=== PATIENT | female | born 1990 | race Caucasian/White ===

== ENCOUNTER 2018-05-28 12:36 | Outpatient (CLI) | payer MEDICAID, SELFPAY ==
[2018-05-28 13:15] VITALS: BMI 41.1
[2018-05-28 13:17] LABS: Hematocrit 37.9 % (37-47); Hemoglobin 12.7 g/dl (12.0-15.0); Mean Corp Hgb Conc 33.5 g/gl (32-36); Mean Corpuscular Hgb 32.3 pg (27.0-32.0); Mean Corpuscular Volume 96.4 fL (81-99); Platelet Count 236 K/mm3 (150-450); RBC Distribution Width CV 14.8 % (11.6-14.6); RBC Distribution Width SD 51.4 fl (35.1-43.9); Red Blood Count 3.93 M/mm3 (4.2-5.4); White Blood Count 8.2 K/mm3 (4.4-11.0)
[2018-05-28 13:18] LABS: Scan Indicated on CBC? Y/N NO
[2018-05-28 13:22] LABS: Partial Thromboplast Time 25.7 Seconds (24.1-36.2); Prothrombin Time (Protime)PT. 13.5 SECONDS (11.7-14.9)
[2018-05-28 13:31] LABS: AST(SGOT) 12 U/L (15-37); Alanine Aminotransfer ALT/SGPT 16 U/L (13-56); Creatinine, Serum 0.49 mg/dL (0.55-1.02); EST Glomerular Filtration Rate 160 mL/min (>60); Est Glom Filt Rate - Afr Amer 194 mL/min (>60); Estimated Creatinine Clearance 178.63 ml/min
--- NOTE | 2018-05-28 13:33 | NURSING ---
Pt to WP from office. Was just seen and evaluated by provider for current complaints.
[2018-05-28 13:35] LABS: Protein, Urine (Random) 19.7 mg/dL (<11.9); Protein:Creat Ratio 168 mg/g CRE (0-200)
[2018-05-28] MEDS: Acetaminophen 500 MG Tablet 1000 MG PO (15:34)
--- NOTE | 2018-05-29 18:09 | OB.TRI.PN ---
Progress Notes Date of Service: 05/28/18 Progress Note: S: at 27w2d Patient seen in office with elevated BP. Sent to L&D for triage, labs, and serial BP. Headache mild, did not take anything for relief. O:Labs normal, awaiting 24h urine FHT 155, moderate variability, accels, variable decel, Reactive 15x15 A:Gestational HTN P: 1) Consulted regarding patient elevated BP, Pre-e precautions given. 2) Follow up in 2 days with . 3) D/C home. Laboratory Studies: Laboratory Tests 05/28/18 05/28/18 05/28/18 Range/Units 13:00 13:00 13:00 WBC 8.2 (4.4-11.0) K/mm3 RBC 3.93 L (4.2-5.4) M/mm3 Hgb 12.7 (12.0-15.0) g/dl Hct 37.9 (37-47) % MCV 96.4 (81-99) fL MCH 32.3 H (27.0-32.0) pg MCHC 33.5 (32-36) g/gl RDW 14.8 H (11.6-14.6) % RDW Differential 51.4 H (35.1-43.9) fl Plt Count 236 (150-450) K/mm3 MPV 9.0 (6.2-12.0) fl PT 13.5 (11.7-14.9) SECONDS INR 1.0 APTT 25.7 (24.1-36.2) Seconds Creatinine 0.49 L (0.55-1.02) mg/dL Estim Creat Clear Calc 178.63 ml/min Est GFR (MDRD) Af Amer 194 (>60) mL/min Est GFR (MDRD) Non-Af 160 (>60) mL/min Uric Acid 4.0 (2.6-6.0) mg/dL AST 12 L (15-37) U/L ALT 16 (13-56) U/L U Random Total Protein (<11.9) mg/dL Urine Creatinine (NO RANGE EST.) mg/dL Protein/Creatinin Ratio (0-200) mg/g CRE 05/28/18 Range/Units 12:40 WBC (4.4-11.0) K/mm3 RBC (4.2-5.4) M/mm3 Hgb (12.0-15.0) g/dl Hct (37-47) % MCV (81-99) fL MCH (27.0-32.0) pg MCHC (32-36) g/gl RDW (11.6-14.6) % RDW Differential (35.1-43.9) fl Plt Count (150-450) K/mm3 MPV (6.2-12.0) fl PT (11.7-14.9) SECONDS INR APTT (24.1-36.2) Seconds Creatinine (0.55-1.02) mg/dL Estim Creat Clear Calc ml/min Est GFR (MDRD) Af Amer (>60) mL/min Est GFR (MDRD) Non-Af (>60) mL/min Uric Acid (2.6-6.0) mg/dL AST (15-37) U/L ALT (13-56) U/L U Random Total Protein 19.7 H (<11.9) mg/dL Urine Creatinine 117.00 (NO RANGE EST.) mg/dL Protein/Creatinin Ratio 168 (0-200) mg/g CRE
== END 2018-05-28 16:12 | disposition home or self-care (01) ==
LOC: WPOUT 12:43 → WP 12:44
PROVIDERS: Referring Provider Advanced Practice Midwife; Visit Provider Advanced Practice Midwife
DX: O13.2 Gestational [pregnancy-induced] hypertension without significant proteinuria, second trimester (principal); Z3A.27 27 weeks gestation of pregnancy
CPT/HCPCS: 36415; 59050; 82565; 82570; 84156; 84450; 84460; 84550; 85027; 85610; 85730; 99218; G0378

== ENCOUNTER → 2018-05-29 16:00 | Outpatient (CLI) | payer MEDICAID, SELFPAY ==
[2018-05-28 13:15] VITALS: BMI 41.1
[2018-05-29 18:47] LABS: 24 Hour Urine Protein 299.4 mg/24HR (<150 MG/24HR); 24HR. UA Prot. Total Volume 1475 mL; Urine Protein (24 Hour) 20.3 mg/dL (<11.9)
== END ==
PROVIDERS: Referring Provider Advanced Practice Midwife; Visit Provider Advanced Practice Midwife
DX: O13.9 Gestational [pregnancy-induced] hypertension without significant proteinuria, unspecified trimester (principal); Z3A.00 Weeks of gestation of pregnancy not specified
CPT/HCPCS: 81050; 84156

== ENCOUNTER 2018-06-24 11:30 | Outpatient (RCR) | payer MEDICAID, SELFPAY | END 2018-06-26 23:59 | LOC: DC 11:30 | PROVIDERS: Visit Provider Advanced Practice Midwife | DX: O24.419 Gestational diabetes mellitus in pregnancy, unspecified control (principal); Z71.3 Dietary counseling and surveillance | CPT/HCPCS: 97802; G0108 ==

== ENCOUNTER 2018-07-02 11:48 | Outpatient (RCR) | payer MEDICAID, SELFPAY | END 2018-07-24 23:59 | LOC: DC 11:48 | PROVIDERS: Visit Provider Advanced Practice Midwife | DX: O24.419 Gestational diabetes mellitus in pregnancy, unspecified control (principal) ==

== ENCOUNTER 2018-07-15 14:50 | Outpatient (CLI) | payer MEDICAID, SELFPAY ==
[2018-07-15 15:42] VITALS: BMI 41.6
[2018-07-15] MEDS: 0.9% Normal Saline 1,000 ML 500 ML IV (16:28)
[2018-07-15 16:45] LABS: Hematocrit 37.1 % (37-47); Hemoglobin 12.5 g/dl (12.0-15.0); Mean Corp Hgb Conc 33.7 g/gl (32-36); Mean Corpuscular Hgb 33.5 pg (27.0-32.0); Mean Corpuscular Volume 99.5 fL (81-99); Mean Platelet Vol. 9.2 fl (6.2-12.0); Platelet Count 225 K/mm3 (150-450); RBC Distribution Width CV 15.7 % (11.6-14.6); Red Blood Count 3.73 M/mm3 (4.2-5.4); White Blood Count 8.5 K/mm3 (4.4-11.0)
[2018-07-15 16:47] LABS: Partial Thromboplast Time 24.9 Seconds (24.1-36.2); Prothrombin Time (Protime)PT. 13.3 SECONDS (11.7-14.9)
[2018-07-15 16:48] LABS: Scan Indicated on CBC? Y/N NO
[2018-07-15 16:55] LABS: Protein, Urine (Random) 24.5 mg/dL (<11.9); Protein:Creat Ratio 144 mg/g CRE (0-200)
[2018-07-15 16:58] LABS: AST(SGOT) 13 U/L (15-37); Alanine Aminotransfer ALT/SGPT 13 U/L (13-56); Creatinine, Serum 0.47 mg/dL (0.55-1.02); EST Glomerular Filtration Rate 165 mL/min (>60); Est Glom Filt Rate - Afr Amer 200 mL/min (>60); Estimated Creatinine Clearance 186.24 ml/min
[2018-07-15 17:31] LABS: Bedside Glucose 70 mg/dL (70-110)
--- NOTE | 2018-08-12 12:30 | OB.TRI.NOTE ---
History of Present Illness Was patient seen by the physician?: No Reason For Visit: R/O LABOR Date of Service: 07/15/18 Allergies tramadol Allergy (Verified 08/04/18 19:58) Itching itching and vomiting Laboratory Studies: Laboratory Tests 07/15/18 07/15/18 07/15/18 Range/Units : 15:55 15:55 WBC (4.4-11.0) K/mm3 RBC (4.2-5.4) M/mm3 Hgb (12.0-15.0) g/dl Hct (37-47) % MCV (81-99) fL MCH (27.0-32.0) pg MCHC (32-36) g/gl RDW (11.6-14.6) % RDW Differential (35.1-43.9) fl Plt Count (150-450) K/mm3 MPV (6.2-12.0) fl PT (11.7-14.9) SECONDS INR APTT (24.1-36.2) Seconds Creatinine 0.47 L (0.55-1.02) mg/dL Estim Creat Clear Calc 186.24 ml/min Est GFR (MDRD) Af Amer 200 (>60) mL/min Est GFR (MDRD) Non-Af 165 (>60) mL/min Uric Acid 4.0 (2.6-6.0) mg/dL AST 13 L (15-37) U/L ALT 13 (13-56) U/L U Random Total Protein 24.5 H (<11.9) mg/dL Urine Creatinine 170.00 (NO RANGE EST.) mg/dL Protein/Creatinin Ratio 144 (0-200) mg/g CRE POC Glucose 70 (70-110) mg/dL 07/15/18 07/15/18 Range/Units 15:55 15:55 WBC 8.5 (4.4-11.0) K/mm3 RBC 3.73 L (4.2-5.4) M/mm3 Hgb 12.5 (12.0-15.0) g/dl Hct 37.1 (37-47) % MCV 99.5 H (81-99) fL MCH 33.5 H (27.0-32.0) pg MCHC 33.7 (32-36) g/gl RDW 15.7 H (11.6-14.6) % RDW Differential 54.0 H (35.1-43.9) fl Plt Count 225 (150-450) K/mm3 MPV 9.2 (6.2-12.0) fl PT 13.3 (11.7-14.9) SECONDS INR 1.0 APTT 24.9 (24.1-36.2) Seconds Creatinine (0.55-1.02) mg/dL Estim Creat Clear Calc ml/min Est GFR (MDRD) Af Amer (>60) mL/min Est GFR (MDRD) Non-Af (>60) mL/min Uric Acid (2.6-6.0) mg/dL AST (15-37) U/L ALT (13-56) U/L U Random Total Protein (<11.9) mg/dL Urine Creatinine (NO RANGE EST.) mg/dL Protein/Creatinin Ratio (0-200) mg/g CRE POC Glucose (70-110) mg/dL Impression/Plan 27yo female presented for threatened PTL NST performed
== END 2018-07-15 18:07 | disposition home or self-care (01) ==
LOC: OBT 14:51 → WPOUT 15:33 → OBT 15:37
PROVIDERS: Referring Provider Obstetrics & Gynecology; Visit Provider Obstetrics & Gynecology
DX: O60.00 Preterm labor without delivery, unspecified trimester (principal); Z3A.00 Weeks of gestation of pregnancy not specified
CPT/HCPCS: 96360; 96361; 36415; 59025; 59050; 82565; 82570; 82962; 84156; 84450; 84460; 84550; 85027; 85610; 85730; 99218; J7030; G0378

== ENCOUNTER 2018-08-04 19:00 | Inpatient (IN) | payer MEDICAID, SELFPAY ==
[2018-08-04 13:04] VITALS: BMI 41.6
[2018-08-04] MEDS: Lactated Ringers 1,000 ML 50 ML IV (19:45)
[2018-08-04 20:17] LABS: Hematocrit 38.1 % (37-47); Hemoglobin 12.6 g/dl (12.0-15.0); Mean Corp Hgb Conc 33.1 g/gl (32-36); Mean Corpuscular Hgb 32.5 pg (27.0-32.0); Mean Corpuscular Volume 98.2 fL (81-99); Mean Platelet Vol. 9.4 fl (6.2-12.0); Platelet Count 209 K/mm3 (150-450); RBC Distribution Width CV 15.3 % (11.6-14.6); RBC Distribution Width SD 54.4 fl (35.1-43.9); Red Blood Count 3.88 M/mm3 (4.2-5.4); White Blood Count 9.4 K/mm3 (4.4-11.0)
[2018-08-04 20:19] LABS: Scan Indicated on CBC? Y/N NO
[2018-08-04 20:22] VITALS: BMI 42.3
[2018-08-04] MEDS: 0.9% Normal Saline 100 ML IV.SOLN. INTRA-UTER (20:41)
[2018-08-04 21:30] LABS: Bedside Glucose 123 mg/dL (70-110)
[2018-08-04 21:30] LABS: Bedside Glucose 110 mg/dL (70-110)
[2018-08-04] MEDS: miSOPROStol 25 MCG TABLET PO (21:31)
--- NOTE | 2018-08-04 21:41 | HP.PCM_ITS ---
- Problem List (1) Obesity affecting Status: Acute (2) History of pre-eclampsia Status: Acute (3) History of depression Status: Acute (4) GBS bacteriuria Status: Acute (5) Gestational diabetes mellitus, class A1 Status: Acute (6) Gestational hypertension Status: Acute History Date of Admission: 08/04/18 Final LINDSEY: 08/25/18 Gestational age: 37 Weeks and 0 Days History of this : This is a 27 year-old, G [3], P [1011], at 37 weeks gestational age by first trimester ultrasound Presents to L&D for IOL due to gestational hypertension. Allergies tramadol Allergy (Verified 08/04/18 19:58) Itching itching and vomiting Home Medications: Home Medications Aspirin [Aspir 81] 81 mg PO DAILY 05/28/18 Vits [Prenatabs FA] 1 tablet PO DAILY 05/28/18 Sertraline HCl 75 mg PO DAILY 05/28/18 Smoking Status: Never smoker Alcohol: None Number of Fetus(es): 1 Heart Tracin, moderate variability, accels, no decels, Category 1 TOCO Analysis: None History Past Pregnancies: Past Pregnancies Delivery Date Name GA/Weeks Outcome Route Weight Infant Gender Labor Length Anesthesia Delivery Location Provider FOB Labs: RPR nonreactive Rubella Immune HIV negative HBsAG negative A positive GBS bacteruria Expected Infant Delivery Method: Spontaneous Vaginal Review of Systems Constitutional: Denies: Chills, Fever, Weight Change HEENT: Denies: Head Aches, Sinus Congestion, Sinus Drainage Cardiovascular: Denies: Chest Pain, Palpitations Respiratory: Denies: Cough, Shortness of breath at rest, Sputum production Gastrointestinal: Denies: Abdominal Pain, Nausea, Vomiting Genitourinary: Denies: Dysuria Musculoskeletal: Denies: Joint Pain, Joint Tenderness Skin: Denies: Rash, Wounds Neurological: Denies: Numbness, Tingling, Focal weakness Psychiatric: Denies: Anxiety, Depression, Homicidal Ideations, Suicidal Ideations Physical Exam General: Alert, Oriented x3, No apparent distress HEENT: Atraumatic, Normocephalic. Negative for: Thyromegaly, Lymphadenopathy Cardiovascular: Regular rate, Regular Rhythm, No murmurs Lungs: Clear to auscultation, Normal air movement, No rhonchi, No wheeze Abdomen: Bowel Sounds Present, Soft, Gravid Extremities:: No edema Neurological: Deep Tendon Reflexes 2+/4 and Symmetrical. 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 A: Medically indicated induction of labor for Gestational Hypertension Category 1 FHT P: 1) Admit to L&D. Routine labs. GBS prophylaxis 2) Aarna bulb with PO cytotec for cervical ripening. Anticipate Pitocin after cervical ripening. 3) Epidural for pain management. 4) notified of patient status and admission.
[2018-08-04 22:16] LABS: Bedside Glucose 92 mg/dL (70-110)
[2018-08-05] MEDS: Oxytocin 30 units/NS 500 ml 30 UNITS/500 ML IV.SOLN IV (02:06)
[2018-08-05 02:36] LABS: Bedside Glucose 68 mg/dL (70-110)
[2018-08-05] MEDS: Lactated Ringers 1,000 ML 50 ML IV ×2 (04:30→07:06)
--- NOTE | 2018-08-05 05:04 | NURSING ---
Esperanza arrived to to obtain pt history and discuss epidural placement. Epidural to be placed in another room then will return to place epidural.
[2018-08-05] MEDS: fentaNYL-bupivacaine (epidural) 100 ML BAG EPIDURAL ×2 (05:30→09:44)
[2018-08-05] MEDS: Acetaminophen 325 MG Tablet PO (05:39)
[2018-08-05 06:31] LABS: Bedside Glucose 81 mg/dL (70-110)
[2018-08-05] MEDS: Ondansetron 4 MG/2 ML Vial IV (06:43)
--- NOTE | 2018-08-05 07:52 | PCM.PN.BLA ---
Progress Note pt seen at bedside, VE: 4-5/70/-2- AROM performed clear fluid. IUPC and IFM placed. Continue pitocin.
[2018-08-05 09:16] LABS: Bedside Glucose 79 mg/dL (70-110)
[2018-08-05 10:40] LABS: Bedside Glucose 84 mg/dL (70-110)
[2018-08-05] MEDS: Oxytocin 30 units/NS 500 ml 30 UNITS/500 ML IV.SOLN 334 UNITS IV (11:07)
--- NOTE | 2018-08-05 11:19 | PCM.OB.VAG ---
Vaginal Delivery Maternal Presentation: Medically Indicated Induction Method of Induction: Pitocin, Amniotomy, Cytotec Medical Reason for Induction: Gestational Hypertension Amniotic Membrane Rupture Type: Artificial Amniotic Fluid Description: Clear Final LINDSEY: 08/25/18 Final LINDSEY Source: US <20 weeks Gestational age: 37 Weeks and 1 Days Date of Procedure: 08/05/18 Pre-Operative Diagnosis: GHTN, term gestation Post-Operative Diagnosis: same, live female infant Surgery/ Procedure Performed: Spontaneous Vaginal Delivery Type of Anesthesia: Epidural Description of Procedure: of live female infant born without complication. Shoulders delivered with good maternal effort and gentle downward traction followed by rest of body. delayed cord clamping performed. Presentation: Vertex Placental Delivery Description: Spontaneous Placenta Disposition: [facility] Cord Vessel Description: 3 Vessels Nuchal Cord Compression: Without compression Cord Entanglement: None Drain: Arana to straight drain Estimated Blood Loss: 250 A gender: Female (1 minute): 9 (5 minute): 9 Laceration: Perineal Extension/lac - repaired with 2-0 vicryl and 3-0 rapide, 2nd degree Medications given after delivery: IV Pitocin Complications: None
[2018-08-05] MEDS: Oxytocin 30 units/NS 500 ml 30 UNITS/500 ML IV.SOLN 167 UNITS IV (11:37)
[2018-08-05 13:01] LABS: Bedside Glucose 94 mg/dL (70-110)
[2018-08-05] MEDS: Acetaminophen 500 MG Tablet 1000 MG PO (13:30)
[2018-08-05 15:28] VITALS: BP 135/77; PULSE 92; RESP 16; TEMP 36.7; O2SAT 95
[2018-08-05] MEDS: BENZOCAINE/MENTHOL 1 LOZENGE MUCOUS MEM (18:57)
[2018-08-05 19:45] VITALS: BP 131/61; PULSE 78; RESP 18; TEMP 36.1; O2SAT 95
[2018-08-05] MEDS: Sertraline 50 MG Tablet 75 MG PO (21:07)
[2018-08-05] MEDS: Ibuprofen 600 MG Tablet PO (21:07)
[2018-08-06 00:40] VITALS: BP 153/97; PULSE 75; RESP 18; TEMP 36.7
[2018-08-06 04:20] VITALS: BP 140/82; PULSE 77; RESP 18; TEMP 36
[2018-08-06 06:16] LABS: Bedside Glucose 73 mg/dL (70-110)
--- NOTE | 2018-08-06 07:56 | PN.OBGYN_ITS ---
Patient Problems: Active and Suspected Problems Obesity affecting (Acute) History of pre-eclampsia (Acute) History of depression (Acute) GBS bacteriuria (Acute) Gestational diabetes mellitus, class A1 (Acute) Gestational hypertension (Acute) Subjective: pt seen at bedside, doing well. pt reports good pain control. lochia mild. pt denies BOJORQUEZ, visual changes or RUQ pain. Voiding w/o difficulty. baby was transferred to [facility]- pt requesting dc home - Physical Exam General: Alert, Oriented x3 Abdomen: Soft, Non Tender, - - fundus firm Extremities: No Calf Tenderness Vital Signs Temp Pulse Resp BP Pulse Ox 96.8 F L 77 18 140/82 H 95 08/06/18 04:20 08/06/18 04:20 08/06/18 04:20 08/06/18 04:20 08/05/18 19:45 Oxygen Delivery Method Room Air Weight: 130 kg Body Mass Index (BMI) 42.3 Intake and Output for Last 24 Hours 08/04/18 08/05/18 08/06/18 23:59 23:59 23:59 Intake Total 3867 / 3867 Output Total 1200 / 1200 Balance 2667 / 2667 POC Glucose 08/06/18 08/05/18 08/05/18 06:11 12:48 10:26 POC Glucose 73 94 84 08/05/18 09:08 POC Glucose 79 Medical Necessity - Tobacco Use Smoking Status: Never smoker Assessment/Plan All Active Problems Obesity affecting (Acute) History of pre-eclampsia (Acute) History of depression (Acute) GBS bacteriuria (Acute) Gestational diabetes mellitus, class A1 (Acute) Gestational hypertension (Acute) PPD#1, doing well routine care pain mgmt dc home VS stable- reviewed to follow up in office one week for BP check- sooner if any symptoms
--- NOTE | 2018-08-06 07:59 | DCINST_ITS ---
Discharge Diet: No Restrictions Discharge Activity: Return to Normal Activity, May not drive while taking narcotic pain medications., May Shower May resume sexual activity in: 4-6 weeks Additional Activity Instructions:: Nothing in the vagina for 4-6 weeks. You may return to work/school in 6 weeks. Call your doctor if your incision/area has: Continuous Slow Oozing, Sudden Increased Bleeding, Increased Pain/ Swelling, Increased Redness, Foul Smelling Discharge Additional Instructions: If you experience any of the following, contact your healthcare provider. * Bleeding that soaks a pad every hour for 2 hours * Fever 100.4 or higher * Unrelieved incision or abdominal pain * Swelling, redness, discharge or bleeding from your incision or episiotomy site * Your incision begins to separate * Problems urinating (including inability to urinate or burning while urinating). * Visual changes * Severe headache * Flu-like symptoms * Pain or redness in one of both of your breasts * Pain, warmth, tenderness or swelling in your legs, especially the calf area * Frequent nausea and vomiting * Symptoms of depression or anxiety If you experience any of the following, call 911 or go to the nearest Emergency Room. * Chest pain * Problems breathing * Seizure activity * Partial or complete paralysis of a body part, slurred speech, weakness or drooping of the face, or a sudden inability to walk or hold your balance Allergies/Adverse Reactions: Allergies tramadol Allergy (Verified 08/04/18 19:58) Itching itching and vomiting Medications to take at Discharge Vits [Prenatabs FA ] 1 tablet PO DAILY 05/28/18 Sertraline HCl 75 mg PO DAILY 05/28/18 Ibuprofen [Motrin] 600 mg PO Q6H PRN PRN #30 tablet 08/06/18 The following prescriptions were given: Ibuprofen [Motrin] 600 mg PO Q6H PRN PRN #30 tablet PRN Reason: Mild Pain (1-08/03) When: Call to make an appointment with your doctor in 6 weeks. If you had elevated Blood Pressure or 4th degree laceration you will need to be seen in 2 weeks. Primary Care Physician: Neha Sandhu,Out of [Primary Care Provider] - Test Results: Test results from this visit will be discussed in further detail at your follow- up appointment, if applicable.
[2018-08-06 08:28] VITALS: BP 124/78; PULSE 67; RESP 16; TEMP 36.8; O2SAT 95
[2018-08-06] MEDS: BENZOCAINE/MENTHOL 1 LOZENGE MUCOUS MEM (08:29)
[2018-08-06] MEDS: Senna/Docusate Sodium 1 Tablet PO (08:29)
[2018-08-06 09:55] VITALS: BP 124/78; PULSE 67; RESP 16; TEMP 36.8; O2SAT 95
--- NOTE | 2018-08-10 14:58 | NURSING ---
Follow up call done and no answer voicemail left
== END 2018-08-06 09:55 | disposition home or self-care (01) | DRG 560 ==
PROVIDERS: Obstetrics & Gynecology; Admitting Provider Obstetrics & Gynecology; Referring Provider Obstetrics & Gynecology; Visit Provider Obstetrics & Gynecology
DX: O13.4 Gestational [pregnancy-induced] hypertension without significant proteinuria, complicating childbirth (principal); Z3A.37 37 weeks gestation of pregnancy; Z37.0 Single live birth; O24.420 Gestational diabetes mellitus in childbirth, diet controlled; O99.214 Obesity complicating childbirth; O69.81X0 Labor and delivery complicated by cord around neck, without compression, not applicable or unspecified; O70.1 Second degree perineal laceration during delivery; O98.82 Other maternal infectious and parasitic diseases complicating childbirth; B95.1 Streptococcus, group B, as the cause of diseases classified elsewhere; Z68.41 Body mass index [BMI] 40.0-44.9, adult
CPT/HCPCS: 59025; 59050; 82962; 85027; 86850; 86900; 99218; J7120; G0378; J2405; J3490

== ENCOUNTER 2020-02-23 19:51 | Emergency (ER) | payer MEDICAID, SELFPAY ==
[2020-02-23 19:52] VITALS: BP 162/89; PULSE 100; RESP 26; TEMP 36.2; O2SAT 95; BMI 42.5
[2020-02-23 20:06] VITALS: BP 146/94; PULSE 95; RESP 17; O2SAT 94
[2020-02-23] MEDS: hydrALAZINE 20 MG/ML Vial 5 MG IV (21:24)
[2020-02-23 21:33] LABS: Mucous, Urine 0 SEEN /hpf (<or=2+); Red Blood Cells-Urine 0 SEEN /hpf (0-5); White Blood Cells 0 SEEN /hpf (0-5)
[2020-02-23 21:41] LABS: Absolute Lymphocyte Count 2.41 X10^3/uL (0.83-4.51); Absolute Neutrophil Count 5.7 X10^3/uL (2.0-7.7); Basophil# 0.03 X10^3/uL; Basophil% 0.3 % (0-1); Eosinophil# 0.15 X10^3/uL; Eosinophils% 1.7 % (0-5); Hematocrit 36.4 % (37-47); Hemoglobin 12.2 g/dL (12.0-15.0); Lymphocyte # 2.41 X10^3/ul (4.0); Lymphocyte % 27.2 % (19-41); Mean Corp Hgb Conc 33.5 g/dL (32-36); Mean Corpuscular Hgb 32.5 pg (27.0-32.0); Mean Corpuscular Volume 97.1 fL (81-99); Mean Platelet Vol. 8.9 fl (6.2-12.0); Monocyte# 0.56 X10^3/uL; Monocyte% 6.3 % (0-10); NRBC Flagged by Analyzer 0 % (0-5); Neutrophil # 5.69 X10^3/uL (2.7-7.7); Neutrophil % 64.2 % (47-70); Platelet Count 267 K/mm3 (150-450); RBC Distribution Width CV 13.9 % (11.6-14.6); RBC Distribution Width SD 48.8 fl (35.1-43.9); Red Blood Count 3.75 M/mm3 (4.2-5.4); White Blood Count 8.9 K/mm3 (4.4-11.0)
[2020-02-23 21:54] LABS: Color, Urine Yellow (Yellow); Glucose, Dipstick Normal (Normal); Ketone-Dipstick 5 mg/dl (Negative); Leukocyte Esterase-Dipstick 25 /ul (Negative); Nitrite-Dipstick Negative (Negative); Occult Blood-Urine Negative /ul (Negative); Protein-Dipstick 30 mg/dl (Negative); Specific Gravity, Urine 1.025 (1.002-1.030); Urine Bilirubin Dipstick Negative (Negative); Urine Clarity Clear (Clear); Urine Urobilinogen 1 mg/dl (Normal)
--- NOTE | 2020-02-23 22:05 | ED.DCSUM_ITS ---
- ER Visit Summary Date of Service: 02/23/20 Chief Complaint: Headache and elevated blood pressure History of Present Illness: The patient is a 29 F who presents with a headache and elevated blood pressure that began yesterday. Patient states her headache started yesterday. Patient checked her blood pressure today and noticed it was elevated. Patient is approximately 20 weeks . Patient called her DOCUMENT EXAMINER who referred her to the emergency department. Patient does admit to some scotoma where she was seeing some spots in her vision. Patient describes her headache as throbbing and sharp. Patient states it is worse over the frontal area. Patient states Tylenol has helped with the headache. Patient admits to some nausea. Patient denies any vomiting. Patient denies any dysuria or hematuria. Patient denies any leg swelling. Physical Examination: Vital signs are stable except for an elevated blood pressure of 162/89. Patient is afebrile. Patient is in no acute distress. Oral mucosa is pink and moist. Neck is supple. Trachea is midline. There is no JVD noted. Heart was regular rate and rhythm. Lungs are clear and equal bilaterally. Abdomen is soft. Bowel sounds are normal. There is no tenderness. There is no rebound or guarding noted. There is no hepatomegaly noted. Skin is warm dry. Cranial nerves II through XII are intact. There are no focal motor or sensory deficits noted. Extremities are intact. There is no calf tenderness or edema. Test Results: CBC was within normal limits. Apprehensive metabolic profile was essentially within normal limits. Liver function tests were not elevated. Urinalysis does not show any evidence of urinary tract infection. There is some proteinuria however. Emergency Department Course and Treatment: Patient was given a dose of hydr alazine here. Patient's blood pressure improved to 150/89. Case was discussed with Dr. Sims, patient's DOCUMENT EXAMINER. She recommended giving the patient a dose of oral labetalol here. She is unsure if the patient has a underlying hypertension or if this is related. She believes that the patient had high blood pressure prior to . She will follow-up with the patient in the office tomorrow. Patient is instructed to call the office in the morning to set up an appointment. Patient understood and was agreeable with the plan. All questions were answered. Disposition: Discharge home Impression: 1. Hypertension 2. This note was generated with Dragon dictation software. It may contain incorrect words, spelling, and punctuation that were not noted in review of the chart prior to signing ED Disposition - Plan for ED Patient: Disposition: Home or Assisted Living Diagnosis: Hypertension affecting in second trimester Instructions: ED Hypertension Established Referrals: Brown Sims MD [STAFF PHYSICIAN] - 1 Day Additional Instructions: Call Dr. Sims office tomorrow morning to schedule an appointment tomorrow.
[2020-02-23 22:08] LABS: ALB/GLOB Ratio 0.8 RATIO (0.9-2.4); AST(SGOT) 11 U/L (15-37); Alanine Aminotransfer ALT/SGPT 13 U/L (13-56); Albumin, Serum 2.9 g/dL (3.2-5.0); Alkaline Phosphatase 43 U/L (45-117); Anion Gap 6 (5-15); BUN 11 mg/dL (7-18); BUN/Creat Ratio 18.7 RATIO (10-20); Calcium,Total 8.4 mg/dL (8.5-10.1); Chloride 108 mmol/L (98-107); Creatinine, Serum 0.59 mg/dL (0.55-1.02); EST Glomerular Filtration Rate 127 mL/min (>60); Est Glom Filt Rate - Afr Amer 154 mL/min (>60); Estimated Creatinine Clearance 145.71 ml/min; Globulin 3.8 g/dL (2.2-4.2); Glucose 86 mg/dL (74-106); Potassium 3.5 mmol/L (3.5-5.1); Protein, Total 6.7 g/dL (6.4-8.2); Sodium Level 138 mmol/L (136-145)
[2020-02-23 22:15] VITALS: BP 156/87; PULSE 94; RESP 21; O2SAT 99
[2020-02-23 22:15] LABS: Squamous Epithelial Cells - UA 0-5 SEEN /hpf (5-10)
[2020-02-23 22:16] LABS: Bacteria 1+ /hpf (None Seen); Calcium Oxalate Crystals Ur 1+ /hpf (<or=2+)
[2020-02-23 22:39] VITALS: BP 150/85; PULSE 83; RESP 13; O2SAT 96
[2020-02-23] MEDS: Labetalol 200 MG Tablet PO (23:00)
== END 2020-02-23 23:01 | disposition home or self-care (01) ==
PROVIDERS: Emergency Provider Emergency Medicine; PCP Internal Medicine
DX: O16.2 Unspecified maternal hypertension, second trimester (principal); F32.9 Major depressive disorder, single episode, unspecified; O99.342 Other mental disorders complicating pregnancy, second trimester; Z3A.20 20 weeks gestation of pregnancy; Z79.82 Long term (current) use of aspirin
CPT/HCPCS: 80053; 81001; 85025; 96374; 99285; A4216

== ENCOUNTER 2020-05-23 17:45 | Outpatient (CLI) | payer MEDICAID, SELFPAY ==
[2020-05-23] VITALS (92 sets, daily range): BP systolic 135–187; BP diastolic 71–107; PULSE 62–92; TEMP 36.8–36.9; O2SAT 83–95; BMI 48.9
[2020-05-23] MEDS: 0.9% Saline Lock 10 ML Syringe IV ×4 (19:00→23:35)
[2020-05-23] MEDS: Labetalol (Prefilled) 20 MG/4 ML IV (19:08)
[2020-05-23 19:30] LABS: Hematocrit 38.9 % (37-47); Hemoglobin 12.9 g/dL (12.0-15.0); Mean Corp Hgb Conc 33.2 g/dL (32-36); Mean Corpuscular Hgb 32.7 pg (27.0-32.0); Mean Corpuscular Volume 98.5 fL (81-99); Mean Platelet Vol. 9.6 fl (6.2-12.0); Platelet Count 286 K/mm3 (150-450); RBC Distribution Width CV 15.3 % (11.6-14.6); RBC Distribution Width SD 54.2 fl (35.1-43.9); Red Blood Count 3.95 M/mm3 (4.2-5.4); White Blood Count 8.8 K/mm3 (4.4-11.0)
[2020-05-23] MEDS: Labetalol (Prefilled) 20 MG/4 ML 40 MG IV (19:30)
--- NOTE | 2020-05-23 19:32 | RAD_ITS ---
STUDY: X-RAY CHEST REASON FOR EXAM: Female, 29 years old. Shortness of breath. TECHNIQUE: Single AP portable view of the chest. COMPARISON: None. FINDINGS: No pleural effusion. Faint hazy opacity in the right upper lobe. The lungs are otherwise clear. Normal size heart. Normal mediastinum and jarrod. Normal visualized pulmonary arteries. Normal visualized aortic arch and descending thoracic aorta. Normal visualized thoracic spine. Normal visualized ribs, clavicles, and shoulders. There is no demonstrated abnormality of the visualized soft tissue structures of the upper abdomen. RAD/Chest 1 View (Portable) IMPRESSION: Faint hazy opacity in the right upper lobe concerning for pneumonia. Consider typical and atypical etiologies. Electronically Signed: Brandy Camara MD at 21:24 EST Tel , Service support ,
[2020-05-23 19:39] LABS: Protein, Urine (Random) 34.7 mg/dL (<11.9); Protein:Creat Ratio 151 mg/g CRE (0-200)
[2020-05-23 19:40] LABS: Partial Thromboplast Time 26.6 Seconds (24.1-36.2); Prothrombin Time (Protime)PT. 12.6 SECONDS (11.7-14.9)
[2020-05-23 19:42] LABS: AST(SGOT) 23 U/L (15-37); Alanine Aminotransfer ALT/SGPT 20 U/L (13-56); Creatinine, Serum 0.51 mg/dL (0.55-1.02); EST Glomerular Filtration Rate 149 mL/min (>60); Est Glom Filt Rate - Afr Amer 180 mL/min (>60); Estimated Creatinine Clearance 162.71 ml/min; Uric Acid 4.7 mg/dL (2.6-6.0)
--- NOTE | 2020-05-23 20:15 | PCM.HP.OB ---
- Problem List (1) 33 weeks gestation of Status: Acute (2) Chronic hypertension affecting Status: Chronic (3) Elevated blood pressure reading Status: Acute (4) Headache in Status: Acute (5) Epigastric pain during , antepartum Status: Acute (6) History of pre-eclampsia Status: Acute (7) Abnormal glucose tolerance in Status: Acute (8) Polyhydramnios affecting Status: Acute (9) Obesity affecting Status: Acute History Date of Admission: 08/04/18 Final LINDSEY: 07/08/20 Final LINDSEY Source: US <20 weeks Gestational age: 33 Weeks and 3 Days History of this : This is a 29 year-old, G 4, P 2011, at 33 weeks gestational age who presents with SOB and severe range BP's at home. She has been checking her blood pressures at home and noted severe range BP's today. In general does not feel well. She has SOB and epigastric pain that has been persistent at home. She presents to L&D triage for evaluation. Allergies tramadol Allergy (Verified 05/23/20 19:27) Itching itching and vomiting Home Medications: Home Medications Vits [Prenatabs FA ] 1 tablet PO DAILY 05/28/18 Sertraline HCl 100 mg PO DAILY 05/28/18 Aspirin [Aspirin, Baby] 81 mg PO DAILY@0800 02/23/20 Smoking Status: Never smoker Number of Fetus(es): 1 NST - FHR Rate Baby A Baseline: 140 Variability:: Moderate Accelerations:: 15 x 15 Decelerations:: None NST Reactive:: Yes Uterine Activity:: Occasional ctx's History Past Pregnancies: Past Pregnancies Delivery Date Name GA/ Weeks Outcome Route Wt Infant Sex Labor Length Anesthesia Delivery Location Provider FOB Labs: See [facility] records Expected Infant Delivery Method: Spontaneous Vaginal Review of Systems HEENT: Reports: Head Aches Respiratory: Reports: Shortness of Breath, Shortness of breath upon exertion Gastrointestinal: Reports: Abdominal Pain Physical Exam Vitals: Vital Signs Temp Pulse BP Pulse Ox 98.5 F 82 146/95 H 94 05/23/20 19:35 05/23/20 20:13 05/23/20 20:08 05/23/20 20:13 Assessment/Plan All Active Problems 33 weeks gestation of (Acute) Elevated blood pressure reading (Acute) Headache in (Acute) Epigastric pain during , antepartum (Acute) History of pre-eclampsia (Acute) Abnormal glucose tolerance in (Acute) Polyhydramnios affecting (Acute) Obesity affecting (Acute) Obesity affecting (Acute) History of pre-eclampsia (Acute) History of depression (Acute) GBS bacteriuria (Acute) Gestational diabetes mellitus, class A1 (Acute) Gestational hypertension (Acute) This is a 29 year-old, at 33 wks gestation who presents for SOB and severe range BP's at home. - cHTN: The pt has a h/o of preeclampsia in prior . She has likely cHTN as well. Has been on baby ASA. Her BP's have been trending up in the office, but she has not needed antihypertensive. She has had negative pre e workup in the office as well. She has new SOB and epigastric pain. She developed a BOJORQUEZ since being on L&D. She was treated with 20 mg of IV labetalol and then 40 mg of IV labetalol for persistent severe range BP's. Starting Labetalol 200 mg BID PO. She is being given Tylenol for her BOJORQUEZ and Mylanta for epigastric pain. Pre e labs and p/c ratio are normal. CXR for SOB to r/o pulmonary edema shows a possible pneumonia. Clinically there is no concern for pneumonia. O2 sat 92-95% on RA. Her BOJORQUEZ is mild but is persistent despite Tylenol. BP's are now mild range on an oral antihypertensive. Epigastric pain has resolved with Mylanta - H/o GDM: 1 hr GTT was elevated. Only 1 value on 3 hr GTT was elevated, but another value was borderline. She is being treated as A1GDM at this time given poly, h/o GDM, and her GTT results. BG have been controlled with diet. Fetus LGA, EFW 5 lb 11 oz on 05/13. To get bedside BG - Poly: CAMRON 27 cm on 05/18 - BMZ x 1 given - GBS collected - Mag gtt not started - Rapid covid sent - Discussed patient with Dr. Craft with [facility] who agrees with transfer to [facility] for further care given 33 week gestation, persistent BOJORQUEZ, and persistent severe range BP. Likely cHTN with possible superimposed preeclampsia
[2020-05-23] MEDS: Mag Hydrox/Al Hydrox/Simeth 30 ML UDC PO (20:26)
[2020-05-23] MEDS: Acetaminophen 500 MG Tablet 1000 MG PO (20:26)
[2020-05-23] MEDS: Labetalol 200 MG Tablet PO (20:43)
[2020-05-23 21:55] LABS: Bedside Glucose 101 mg/dL (70-110)
[2020-05-23 22:00] LABS: Group B Strep DNA By PCR Negative (Negative); Internal Control PASS; Probe Check PASS; Specimen Processing Control PASS
[2020-05-23] MEDS: Betamethasone/Betamethasone 30 MG/5 ML Vial 12 MG IM (22:41)
[2020-05-23] MEDS: Labetalol (Compound) 20 MG/4 ML SYRINGE IV ×2 (23:30→23:50)
[2020-05-23] MEDS: Magnesium Sulfate 4gm/100mL 4 GM/100 ML IV.SOLN. IV (23:35)
[2020-05-23] MEDS: Magnesium Sulfate 20 GM/500 ML BAG IV (23:57)
[2020-05-24] VITALS (35 sets, daily range): BP systolic 125–168; BP diastolic 71–97; PULSE 70–145; TEMP 36.5–36.9; O2SAT 85–97
[2020-05-24] MEDS: hydrALAZINE 20 MG/ML Vial 10 MG IV (01:21)
== END 2020-05-24 02:08 | disposition short-term general hospital (02) ==
LOC: WPOUT 17:52 → WP 17:52
PROVIDERS: Obstetrics & Gynecology; PCP Internal Medicine; Visit Provider Advanced Practice Midwife
DX: R06.02 Shortness of breath (principal); E66.9 Obesity, unspecified; O99.213 Obesity complicating pregnancy, third trimester; O99.343 Other mental disorders complicating pregnancy, third trimester; O26.893 Other specified pregnancy related conditions, third trimester; F32.9 Major depressive disorder, single episode, unspecified; Z79.82 Long term (current) use of aspirin; Z3A.33 33 weeks gestation of pregnancy
CPT/HCPCS: 96365; 96366; 96367; 36415; 59025; 59050; 71045; 82565; 82570; 82962; 84156; 84450; 84460; 84550; 85027; 85610; 85730; 87081; 87426; 87653; 94760; 96372; 99218; A4216; G0378; J0702

== ENCOUNTER → 2022-04-06 | Outpatient (CLI) | payer MEDICAID, SELFPAY | END | disposition home or self-care (01) | LOC: SL 20:05 | PROVIDERS: PCP Internal Medicine; Visit Provider Internal Medicine | DX: G47.30 Sleep apnea, unspecified (principal) | CPT/HCPCS: 95811 ==

== ENCOUNTER 2022-04-30 08:14 | Emergency (ER) | payer MEDICAID, SELFPAY ==
[2022-04-30 08:15] VITALS: BP 198/92; PULSE 49; RESP 28; TEMP 36.2; O2SAT 95; BMI 41.3
[2022-04-30 08:17] VITALS: O2SAT 96
--- NOTE | 2022-04-30 08:26 | RAD_ITS ---
STUDY: X-RAY CHEST REASON FOR EXAM: Female, 31 years old. Cough TECHNIQUE: PA and lateral views of the chest. COMPARISON: Comparison is made with prior study dated 05/23/2020. FINDINGS: There is evidence of a right middle lobe infiltration as well as left perihilar infiltrate. Increased markings are also seen in the right upper lobe most likely scarring. This is unchanged. There is no demonstrated pleural abnormality. Normal size heart. Normal mediastinum and jarrod. Normal visualized pulmonary arteries. Normal visualized aortic arch and descending thoracic aorta. Normal visualized thoracic spine. Normal visualized ribs, clavicles, and shoulders. There is no demonstrated abnormality of the visualized soft tissue structures of the upper abdomen. RAD/Chest PA and Lateral IMPRESSION: New right middle lobe and left perihilar infiltrates. Follow-up is recommended. Stable scarring in the right upper lobe. Electronically Signed: Clifton Sullivan MD at 9:27 EST ,
--- NOTE | 2022-04-30 08:29 | EDS_ITS ---
HPI History of Present Illness Chief Complaint: Shortness of Breath Informant: patient Narrative Narrative: Patient presents with cough and possible wheezing. She states she started getting sick about a week ago. She had some cough. She has had some intermittent headache. She has had occasional chills but no measured fevers. No real myalgias. No sputum production. No hemoptysis. She states her chest is occasionally sore if she coughs hard but other than that no chest pain. No leg pain or swelling. No history of DVT or PE in her or family members. She did travel to [place] about 3 weeks ago. This was about a 4-hour drive. She was seen at a different hospital on Saturday. It sounds like she was treated with prednisone, azithromycin and an inhaler. She does report having asthma as a child and using nebulizer treatments but has not used those in a long time. She is not a smoker. She was getting better yesterday. But she woke up this morning around 430 with a lot of coughing. She tried to use her inhaler but it was hard because of the coughing. It was not improving so she came in here. She is doing a little bit better now than this morning. [facility] Medical History (Updated 04/30/22 @ 12:[address] Naif Whitt MD) Anxiety Depression HTN (hypertension) Home Medications albuterol sulfate 90 mcg/actuation aerosol inhaler 2 puff inhalation Q4H 04/30/22 [History Last Taken Unknown] azithromycin 250 mg tablet 250 mg 04/30/22 [History Last Taken Unknown] benzonatate 200 mg capsule 200 mg PO PRN PRN Cough 04/30/22 [History Last Taken Unknown] bupropion HCl 150 mg 24 hr tablet, extended release 150 mg PO DAILY 04/30/22 [History Last Taken Unknown] escitalopram oxalate 5 mg tablet 10 mg PO DAILY 04/30/22 [History Last Taken Unknown] prednisone 20 mg tablet 60 mg PO DAILY 04/30/22 [History Last Taken Unknown] Allergy/AdvReac Type Severity Reaction Status Date / Time tramadol Allergy Itching Verified 04/30/22 08:17 Social History Smoking Status: Never smoker ROS ROS ED Constitutional Constitutional ED: Reports chills Eyes Eyes: Denies change in vision ENT ENT ED: Reports rhinorrhea and sore throat Cardiovascular Cardiovascular: Denies chest pain or palpitations Respiratory/Chest Respiratory/Chest: Reports cough and dyspnea; Denies sputum Gastrointestinal Gastrointestinal: Denies abdominal pain, nausea or vomiting Genitourinary Genitourinary ED: Denies dysuria Musculoskeletal Musculoskeletal: Denies arthralgias or myalgias Integumentary Denies rash Neurologic Neurologic: Reports headache(s) Endocrine Endocrinology: Denies polydipsia or polyuria Hematologic/Lymphatic Hematologic/Lymphatic: Denies lymphadenopathy Allergic/Immunologic Allergic/Immunologic ED: Denies urticaria EXAM Physical Exam Const Vital Signs: 04/30/22 08:15 04/30/22 08:57 04/30/22 08:45 Temperature 97.1 F L Temperature Source Temporal Pulse Rate 49 L 50 L Respiratory Rate 28 H 18 Respiratory Effort Normal Non-Labored Respiratory Depth Normal Respiratory Pattern Normal Normal Blood Pressure 198/92 H Blood Pressure Mean 127 Pulse Ox 95 Oxygen Delivery Method Room Air Positive well nourished and well developed Constitutional Narrative: Patient sitting quietly in bed. She is carrying on normal conversation. Respiratory rates about 20 at this time. General Appearance ED: well developed and NAD HEENT Reports moist mucous membranes HEENT Narrative: No exudates Eyes PERRL General Eye ED: Negative for pale conjunctiva or scleral icterus Neck no lymphadenopathy Neck Narrative: No stridor. No JVD Resp normal respiratory effort Resp Narrative: Respiratory effort actually looks normal despite her vitals. She carries on normal conversation. I do not hear any rhonchi. She does have expiratory wheezing that is mild. It increases with deep breaths. Deep breaths do induce a cough. Auscultation: wheezes; Negative for rales or rhonchi Cardio regular rate, regular rhythm and no murmurs GI non-tender Back/Spine no CVA tenderness Extremity normal to inspection Extremity Narrative: No cords, tenderness, asymmetry, distended veins. Pulses are normal. General Extremety ED: Negative for edema or tenderness General Extremity: Negative for edema Neuro Sensorium / Orientation: alert Psych mental status grossly normal Skin no wounds MDM MDM MDM Narrative Medical decision making narrative: X-ray shows infiltrate. Patient was giving a breathing treatment. She felt that this helped quite a bit. Her lung we walked her. She did drop to 91% but she felt good. I also watched her walk all the way down the [place] she walked very quickly without any symptoms. Patient is PERC negative. I think we can get her home. She took her first dose of azithromycin on Saturday at the hospital. Second dose was yesterday. She is about to take her third dose. I do not think we need to change antibiotics as I do not think this is failure of antibiotic therapy at this point. These should be appropriate for her age group. We did discuss reasons that would bring her back in. Patient is on 60 of prednisone a day which is a good dose. I will also have respiratory therapy get a spacer for her inhaler so that it works better for her. Radiography Diagnostic Testing: Clinical Impression(s) from Imaging Studies Chest X-Ray 04/30/22 08:26 IMPRESSION: New right middle lobe and left perihilar infiltrates. Follow-up is recommended. Stable scarring in the right upper lobe. Electronically Signed: Clifton Sullivan MD at 9:27 EST , X-rays looked at by me and read by radiology do show infiltrative process. Discharge Plan Triage Chief Complaint: Shortness of Breath ED Provider: Naif Whitt Dx/Rx/DC Orders Clinical Impression: Community acquired pneumonia, Bronchospasm Instructions: ED Pneumonia (Adult) Prescriptions: No Action azithromycin 250 mg tablet 250 mg Label Comments: take 2 tablets by mouth on day 1 IN ONE DOSE then 1 tablet on days 2 through 5 benzonatate 200 mg capsule 200 mg PO PRN PRN (Reason: Cough) Label Comments: take 1 capsule by mouth three times a day albuterol sulfate 90 mcg/actuation HFA aerosol inhaler 2 puff INHALATION Q4H Label Comments: INHALE 2 PUFFS BY MOUTH EVERY 4 HOURS bupropion HCl 150 mg tablet extended release 24 hr 150 mg PO DAILY escitalopram oxalate 5 mg tablet 10 mg PO DAILY prednisone 20 mg tablet 60 mg PO DAILY Label Comments: take 3 tablets by mouth once daily Primary Care Provider: Rona Hyde Referrals: Rona Hyde MD [Primary Care Provider] - 3-5 Days if not improving Disposition Disposition: Home, Self Care
[2022-04-30] MEDS: Ipratropium/Albuterol Sulfate 3 ML AMPUL.NEB INHALATION (08:41)
[2022-04-30 08:45] VITALS: PULSE 50; RESP 18
[2022-04-30 10:25] VITALS: O2SAT 98
[2022-04-30 12:20] VITALS: PULSE 103; O2SAT 97
== END 2022-04-30 12:26 | disposition home or self-care (01) ==
PROVIDERS: Emergency Provider Emergency Medicine; PCP Internal Medicine; Visit Provider Emergency Medicine
DX: J18.9 Pneumonia, unspecified organism (principal); J98.01 Acute bronchospasm; I10 Essential (primary) hypertension; F41.9 Anxiety disorder, unspecified; F32.A Depression, unspecified; Z79.899 Other long term (current) drug therapy
CPT/HCPCS: 71046; 87428; 94640; 99282

== ENCOUNTER 2022-05-30 09:00 | Emergency (ER) | payer MEDICAID, SELFPAY ==
[2022-05-30 09:01] VITALS: BP 171/101; PULSE 71; RESP 18; TEMP 36.6; O2SAT 97; BMI 41.3
== END 2022-05-30 12:17 | disposition left against medical advice (07) ==
LOC: ED 12:21
PROVIDERS: PCP Internal Medicine
DX: Z53.21 Procedure and treatment not carried out due to patient leaving prior to being seen by health care provider (principal)

== ENCOUNTER 2024-10-21 12:02 | Emergency (ER) | payer MEDICAID, SELFPAY ==
[2024-10-21] VITALS (13 sets, daily range): BP systolic 121–150; BP diastolic 72–104; PULSE 50–67; RESP 14–19; TEMP 36.7–36.9; O2SAT 91–98; BMI 41.8
--- NOTE | 2024-10-21 12:35 | CT_ITS ---
PROCEDURE: CTA CHEST W/WO CONTRAST 10/21/2024 REASON FOR EXAM: CHEST PAIN, KNOWN PULMONARY ANEURYSM TECHNIQUE: CTA axial imaging of the chest with intravenous contrast. Multiplanar and multisequence images were obtained. PATIENT PREPARATION: Per protocol CONTRAST: Isovue-300 VOLUME: 100 mL One or more dose reduction techniques were used (e.g., Automated exposure control, adjustment of the mA and/or kV according to patient size, use of iterative reconstruction technique). RADIATION DOSE SUMMARY: CTDlvol: 13.4 mGy DLP: 567.22 mGycm . COMPARISON: None FINDINGS: Hardware: None Lymph nodes: Small benign-appearing mediastinal lymph nodes. There is a right hilar lymph node measuring 2.1 cm. Heart: Heart size is normal. No coronary artery calcification. Thoracic Aorta: No thoracic aortic aneurysm or dissection. Pulmonary Vessels: There is enlargement of the central main pulmonary arteries as well as the main pulmonary artery suggestive of pulmonary hypertension. No evidence of pulmonary embolism. Lungs and Airways: Hyperinflation. Increased markings are seen in the upper lobes more pronounced in the left hemithorax with areas of geographic ground-glass appearance most likely representing scarring. This is worse in the left hemithorax and lower lobes. Pleura: No pleural effusion. Upper Abdomen: Unremarkable Bones: Degenerative changes of the thoracic spine. CT/CTA Chest W/WO Contrast IMPRESSION: Findings suggestive of pulmonary hypertension with evidence of enlargement of t he central pulmonary arteries as described. Findings suggestive of scarring in both lungs worse in the left hemithorax. No evidence of pulmonary embolism. Reading Location: [place] [id number]
--- NOTE | 2024-10-21 12:35 | EKG12_ITS ---
Test Reason : CP Blood Pressure : */* mmHG Vent. Rate : 56 BPM Atrial Rate : 56 BPM P-R Int : 172 ms QRS Dur : 90 ms QT Int : 500 ms P-R-T Axes : 14 -69 70 degrees QTcB Int : 482 ms Sinus bradycardia Left axis deviation Low voltage QRS Inferior infarct , age undetermined Anterior infarct , age undetermined QTcB >= 480 msec Abnormal ECG Confirmed by MIKAYLA LAINEZ ([id number]), pictures editor LOAN SCHNEIDER ([id number]) on 10/26/2024 8:04:38 AM Referred By: Confirmed By: MIKAYLA LAINEZ
[2024-10-21 12:50] LABS: Absolute Lymphocyte Count 1.51 X10^3/uL (0.83-4.51); Absolute Neutrophil Count 5.5 X10^3/uL (2.0-7.7); Basophil# 0.05 X10^3/uL; Basophil% 0.6 % (0-1); Eosinophil# 0.25 X10^3/uL; Eosinophils% 3.2 % (0-5); Hematocrit 46.6 % (37-47); Lymphocyte # 1.51 X10^3/ul (0.83-4.51); Lymphocyte % 19.5 % (19-41); Mean Corp Hgb Conc 34.3 g/dL (32-36); Mean Corpuscular Hgb 32.7 pg (27.0-32.0); Mean Corpuscular Volume 95.1 fL (81-99); Mean Platelet Vol. 9.3 fl (6.2-12.0); Monocyte# 0.41 X10^3/uL; Monocyte% 5.3 % (0-10); NRBC Flagged by Analyzer 0 % (0-5); Neutrophil % 71.1 % (47-70); Platelet Count 318 K/mm3 (150-450); RBC Distribution Width CV 12.8 % (11.6-14.6); RBC Distribution Width SD 44.3 fl (35.1-43.9); White Blood Count 7.7 K/mm3 (4.4-11.0)
[2024-10-21] MEDS: 0.9% Normal Saline (1000mL) 1,000 ML 999 ML IV (12:58)
--- NOTE | 2024-10-21 13:14 | ED.VIS.CHEST ---
HPI History of Present Illness Chief Complaint: Chest Pain Narrative Narrative: Chief complaint and HPI: Chest pain. 32-year-old female with past medical history of HTN, GERD, pulmonary artery aneurysm presents for evaluation of chest pain. Onset of chest pain 9 AM. Patient describes it as sharp. Worse when she takes a deep breath in. Pain did not improve so she called EMS. Was given aspirin and nitro prior to arrival. No improvement in pain. She denies any fever, chills, shortness of breath, URI symptoms, nausea, vomiting. Denies any injury or trauma that she knows of. Denies any recent travel surgery. Denies any bilateral lower extremity swelling or pain. Review of systems: See HPI Medications: As listed on the chart Allergies: As listed on the chart PFSH: Per chart Vital signs: As listed on the chart. Reviewed. Physical exam: Gen: A&O x3, NAD Head: Normocephalic, atraumatic Eyes: No sclera icterus, conjunctiva clear ENT: Moist mucous membranes Neck: Trachea midline, No JVD CV: RRR, no murmurs, no peripheral edema, chest pain nonreproducible Resp: Lungs CTA BL, no w/r/c GI: Abd soft, non-distended, non-tender, no r/r/g Musc: Full ROM, no deformity, radial pulses +2 bilateral Skin: Warm, dry Neuro: Alert, oriented, grossly intact, sensation intact Psych: Cooperative, appropriate mood and affect [facility] Medical History (Updated 10/21/24 @ 15:[address] Henri Carbajal, ) Bipolar 1 disorder Anxiety Depression HTN (hypertension) Home Medications ?Medication ?Instructions ?Recorded ?Last Taken ?Type albuterol sulfate 90 mcg/actuation 2 puff inhalation Q4H 04/30/22 Unknown History aerosol inhaler azithromycin 250 mg tablet 250 mg 04/30/22 Unknown History benzonatate 200 mg capsule 200 mg PO PRN PRN Cough 04/30/22 Unknown History bupropion HCl 150 mg 24 hr tablet, 150 mg PO DAILY 04/30/22 Unknown History extended release escitalopram oxalate 5 mg tablet 10 mg PO DAILY 04/30/22 Unknown History prednisone 20 mg tablet 60 mg PO DAILY 04/30/22 Unknown History Allergy/AdvReac Type Severity Reaction Status Date / Time tramadol Allergy Itching Verified 04/30/22 08:17 Social History Smoking Status: Never smoker EXAM Physical Exam Const Vital Signs: 10/21/24 12:03 10/21/24 12:55 10/21/24 13:03 Temperature 98.4 F Temperature Source Oral Pulse Rate 59 L 67 Respiratory Rate 16 15 Respiratory Effort Normal Non-Labored Blood Pressure 144/89 H 141/77 H Blood Pressure Mean 107 98 Pulse Ox 98 95 Oxygen Delivery Method Room Air 10/21/24 13:05 10/21/24 13:15 10/21/24 13:15 Temperature Temperature Source Pulse Rate 57 L Respiratory Rate 16 Respiratory Effort Blood Pressure 145/99 H 145/99 H Blood Pressure Mean 109 109 Pulse Ox 94 Oxygen Delivery Method 10/21/24 13:30 10/21/24 13:30 10/21/24 13:45 Temperature Temperature Source Pulse Rate 53 L Respiratory Rate 18 Respiratory Effort Blood Pressure 135/79 H 135/79 H 121/73 H Blood Pressure Mean 96 96 87 Pulse Ox 94 93 Oxygen Delivery Method 10/21/24 14:00 10/21/24 14:00 10/21/24 14:15 Temperature Temperature Source Pulse Rate 64 Respiratory Rate 17 Respiratory Effort Blood Pressure 132/81 H 127/72 H 132/81 H Blood Pressure Mean 98 87 96 Pulse Ox 96 91 93 Oxygen Delivery Method 10/21/24 14:30 10/21/24 14:45 10/21/24 15:00 Temperature Temperature Source Pulse Rate 52 L 50 L 50 L Respiratory Rate 19 H 16 14 Respiratory Effort Blood Pressure 145/88 H 137/88 H 131/90 H Blood Pressure Mean 99 102 101 Pulse Ox 96 95 97 Oxygen Delivery Method 10/21/24 15:15 10/21/24 15:36 Temperature 98.1 F Temperature Source Pulse Rate 61 61 Respiratory Rate 16 16 Respiratory Effort Blood Pressure 150/104 H 150/104 H Blood Pressure Mean 118 119 Pulse Ox 95 95 Oxygen Delivery Method MDM MDM MDM Narrative Medical decision making narrative: 32-year-old female with past medical history of HTN, GERD, pulmonary artery aneurysm presents for evaluation of chest pain. Onset of chest pain 9 AM. Patient describes it as sharp. Worse when she takes a deep breath in. Given aspirin and nitro prior to arrival without improvement. Differential diagnosis includes but is not limited to myofascial spasm, pleurisy, dissection given her reported aneurysm, PE, ACS, suspect less likely pneumonia. Will hold off on Toradol for pain until further assessment. NS bolus and Tylenol ordered. Cardiac workup ordered including CTA chest. EKG reviewed, see below. CBC without leukocytosis. Patient has a hemoglobin of 16. May be secondary to mild dehydration. Fluids running. Platelet count unremarkable. BMP unremarkable without CARMEL or electrolyte abnormality. Magnesium mildly elevated at 2.3. Patient states that she takes daily magnesium. Troponin unremarkable x 2-low suspicion for ACS. Patient is low risk per heart score as well. BNP unremarkable. CTA chest shows enlargement of the central main pulmonary arteries as well as the main pulmonary arteries suggestive of pulmonary hypertension. No PE. Patient has findings suggestive of scarring in both lungs worse in the left hemithorax. Patient states that she has history of lung fibrosis. At this point in time, no clear etiology for patient's symptoms. On reexamination, patient states her pain has improved. Patient was updated on all of her results. Patient stable to discharge home. Follow-up with PCP. Return precautions explained. She confirmed understand the plan. EKG: Interpreted by me/EM physician: EKG shows sinus bradycardia with a heart rate of 56. No ST elevation. Impression: 1. Atypical chest pain Lab Data Labs: Laboratory Results - last 24 hr 10/21/24 10/21/24 11:49 13:49 WBC 7.7 RBC 4.90 Hgb 16.0 H Hct 46.6 MCV 95.1 MCH 32.7 H MCHC 34.3 RDW Std Deviation 44.3 H RDW Coeff of Jeffry 12.8 Plt Count 318 MPV 9.3 Immature Gran % (Auto) 0.300 Neut % (Auto) 71.1 H Lymph % (Auto) 19.5 Towns % (Auto) 5.3 Eos % (Auto) 3.2 Baso % (Auto) 0.6 Absolute Neuts (auto) 5.5 Absolute Lymphs (auto) 1.51 Nucleated RBC % 0 Sodium 135 Potassium 4.2 Chloride 101 Carbon Dioxide 22.4 Anion Gap 11 BUN 12 Creatinine 0.70 Estim Creat Clear Calc 162.97 Est GFR (MDRD) Non-Af 116 BUN/Creatinine Ratio 17.2 Glucose 101 H Calcium 8.8 Magnesium 2.3 H Troponin T High Sens < 6 Troponin T Hi Sens 2 Hr < 6 NT pro BNP II 51 Radiography Diagnostic Testing: Clinical Impression(s) from Imaging Studies Chest CTA 10/21/24 12:35 IMPRESSION: Findings suggestive of pulmonary hypertension with evidence of enlargement of the central pulmonary arteries as described. Findings suggestive of scarring in both lungs worse in the left hemithorax. No evidence of pulmonary embolism. Reading Location: [place] [id number] Discharge Plan Triage Chief Complaint: Chest Pain ED Provider: Henri Carbajal Dx/Rx/DC Orders Clinical Impression: Chest pain Instructions: ED Chest Pain, Uncertain Cause Prescriptions: No Action azithromycin 250 mg tablet 250 mg Patient Comments: take 2 tablets by mouth on day 1 IN ONE DOSE then 1 tablet on days 2 through 5 benzonatate 200 mg capsule 200 mg PO PRN PRN (Reason: Cough) Patient Comments: take 1 capsule by mouth three times a day albuterol sulfate 90 mcg/actuation HFA aerosol inhaler 2 puff INHALATION Q4H Patient Comments: INHALE 2 PUFFS BY MOUTH EVERY 4 HOURS bupropion HCl 150 mg tablet extended release 24 hr 150 mg PO DAILY escitalopram oxalate 5 mg tablet 10 mg PO DAILY prednisone 20 mg tablet 60 mg PO DAILY Patient Comments: take 3 tablets by mouth once daily Primary Care Provider: Rona Hyde Referrals: Rona Hyde MD [Primary Care Provider] - 3-5 Days Activity Restrictions/Additional Instructions: Follow-up with primary care physician. Return back to the ED if symptoms change or worsen. At this time no clear reason for your pain that you experienced. Print Language: Micronesian Disposition Disposition: Home, Self Care Discharge Date/Time: 10/21/24 15:41
[2024-10-21 13:25] LABS: Anion Gap 11 (5-15); BUN 12 mg/dL (4-19); BUN/Creat Ratio 17.2 RATIO (10-20); Calcium,Total 8.8 mg/dL (7.6-11.0); Carbon Dioxide 22.4 mmol/L (21.0-32.0); Chloride 101 mmol/L (98-108); EST Glomerular Filtration Rate 116 (>60); Estimated Creatinine Clearance 162.97 ml/min (50-250); Glucose 101 mg/dL (70-99); Magnesium 2.3 mg/dL (1.5-2.2); Potassium 4.2 mmol/L (3.3-5.1); Pro- Brain NATRIURETIC PEPTIDE 51 pg/mL (<=450); Sodium Level 135 mmol/L (133-145); Troponin T High Sensitivity < 6 ng/L (<=14)
[2024-10-21] MEDS: Acetaminophen 500 MG Tablet 1000 MG PO (14:21)
[2024-10-21 15:19] LABS: Troponin T High Sens 2 HR < 6 ng/L (<=14)
== END 2024-10-21 15:41 | disposition home or self-care (01) ==
PROVIDERS: Emergency Provider Surgery; PCP Internal Medicine; Visit Provider Surgery
DX: R07.89 Other chest pain (principal); F31.9 Bipolar disorder, unspecified; I10 Essential (primary) hypertension; K21.9 Gastro-esophageal reflux disease without esophagitis; F41.9 Anxiety disorder, unspecified; Z86.79 Personal history of other diseases of the circulatory system; Z79.899 Other long term (current) drug therapy
CPT/HCPCS: 71275; 80048; 83735; 83880; 84484; 85025; 93005; 96360; 99285; Q9967; A4216

== ENCOUNTER → 2024-12-01 | Outpatient (CLI) | payer MEDICAID, SELFPAY ==
--- NOTE | 2024-12-01 12:39 | RAD_ITS ---
EXAM: XR Chest, 2 Views CLINICAL INDICATION: SOB TECHNIQUE: Frontal and lateral views of the chest. COMPARISON: No relevant prior studies available. FINDINGS: LUNGS AND PLEURAL SPACES: Pulmonary venous congestion. No consolidation. No pneumothorax. HEART: Unremarkable. No cardiomegaly. MEDIASTINUM: Unremarkable. Normal mediastinal contour. BONES/JOINTS: Unremarkable. No acute fracture. RAD/Chest PA and Lateral IMPRESSION: Pulmonary venous congestion. Reading Location: [facility]
== END | disposition home or self-care (01) ==
PROVIDERS: PCP Internal Medicine
DX: R06.02 Shortness of breath (principal)
CPT/HCPCS: 71046

== ENCOUNTER 2025-03-31 08:36 | Emergency (ER) | payer MEDICAID, SELFPAY ==
[2025-03-31 08:36] VITALS: BP 139/92; PULSE 74; RESP 18; TEMP 37.1; O2SAT 96; BMI 41.3
--- NOTE | 2025-03-31 10:27 | CT_ITS ---
PROCEDURE: BRAIN/HEAD WITHOUT CONTRAST 03/31/2025 REASON FOR EXAM: HEADACHE, VERTIGO TECHNIQUE: Procedure Code: CTBR Modality: CT Procedure: BRAIN/HEAD WITHOUT CONTRAST Coronal and Sagittal reconstruction series were provided. One or more dose reduction techniques were used (e.g., Automated exposure control, adjustment of the mA and/or kV according to patient size, use of iterative reconstruction technique. RADIATION DOSE SUMMARY: CTDlvol: 44.99 mGy DLP: 779.24 mGycm COMPARISON: None FINDINGS: Brain: Normal CSF Spaces: Normal Sinuses/Mastoids: Clear at visualized levels Bones: Unremarkable CT/Brain/Head without Contrast IMPRESSION: NORMAL NONCONTRAST HEAD CT. Reading Location: [facility]
--- NOTE | 2025-03-31 10:28 | EX.ED.DYSGE1 ---
HPI History of Present Illness Chief Complaint: Dizziness Informant: patient and PCP Narrative Narrative: Patient is a 34-year-old female with a history of interstitial lung disease, pulmonary artery aneurysm, and HTN, presenting with headache and episodic dizziness. - Reports sudden onset of vertigo at 0400 this morning, described as the whole room just started spinning upon waking. - Vertigo is positional, resolving when sitting still and recurring with position changes, such as getting out of bed or lying back down. - Describes sensation as walking on clouds. - Associated with mild lightheadedness, but primarily spinning sensation. - Developed a headache later in the day, described as unusual for her. - couple days ago, noticed squiggly lines in vision when looking to the right, which resolved spontaneously. - This morning, experienced numbness in the left leg immediately upon waking, which has since resolved; denies sleeping on that side. - Denies recent URI symptoms, earache, ear infection, tinnitus, or changes in hearing. - Denies nausea or emesis. - Reports increased dyspnea and shakiness during episodes of vertigo; dyspnea is worse than her baseline related to interstitial lung disease. - Denies palpitations, chest discomfort, or any sensation of heart skipping or racing. - No history of vertigo. - Recent appendectomy one month ago. - Not on anticoagulants. 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 She denies having any palpitations, dyspnea, or feeling near syncopal today. [facility] Medical History Bipolar 1 disorder Anxiety Depression HTN (hypertension) Home Medications ?Medication ?Instructions ?Recorded ?Last Taken ?Type albuterol sulfate 90 mcg/actuation 2 puff inhalation Q4H 04/30/22 Unknown History aerosol inhaler bupropion HCl 150 mg 24 hr tablet, 150 mg PO DAILY 04/30/22 Unknown History extended release escitalopram oxalate 5 mg tablet 10 mg PO DAILY 04/30/22 Unknown History meclizine 25 mg tablet 25 mg PO TID PRN dizziness #20 tabs 03/31/25 Unknown Rx metoprolol tartrate 25 mg tablet 25 mg PO QHS 03/31/25 Unknown History Allergy/AdvReac Type Severity Reaction Status Date / Time tramadol Allergy Itching Verified 03/31/25 08:36 Social History Smoking Status: Never smoker ROS ROS ED Constitutional Constitutional ED: Denies chills or fever(s) Eyes Eyes: Reports change in vision bilateral (couple days ago when looking to the right transiently; no field cuts/loss); Denies blurry vision or diplopia ENT ENT ED: Reports as per HPI, disequillibrium, dizziness and vertigo; Denies ear pain, rhinorrhea, sore throat or tinnitus Cardiovascular Cardiovascular: Denies chest pain or palpitations Respiratory/Chest Respiratory/Chest: Denies cough or dyspnea Gastrointestinal Gastrointestinal: Denies abdominal pain, diarrhea, nausea or vomiting Genitourinary Genitourinary ED: Denies dysuria or hematuria Musculoskeletal Musculoskeletal: Denies back pain or neck pain Integumentary Denies abscess or rash Neurologic Neurologic: Reports headache(s) and paresthesias LLE (resolved); Denies weakness Psychiatric Psychiatric: Denies suicidal thoughts EXAM Physical Exam Const Vital Signs: 03/31/25 08:36 03/31/25 10:44 03/31/25 12:00 Temperature 98.7 F Temperature Source Oral Pulse Rate 74 58 L 50 L Respiratory Rate 18 18 17 Blood Pressure 139/92 H 134/97 H 120/77 Blood Pressure Mean 107 109 91 Pulse Ox 96 92 92 Oxygen Delivery Method Room Air Room Air Positive well nourished and well developed General Appearance ED: well developed and NAD HEENT Reports TM's clear and moist mucous membranes normocephalic and atraumatic Tympanic Membrane ED: Yes TM's clear Eyes PERRL and EOMs intact bilaterally Eyes Narrative: Some horizontal fatigable nystagmus, no vertical or rotatory nystagmus. Negative skew test. Neck full ROM and supple Resp normal respiratory effort and clear to auscultation bilaterally Cardio regular rate, regular rhythm and no murmurs GI non-tender and non-distended Auscultation: normoactive bowel sounds Palpation: soft Back/Spine no CVA tenderness General Back: other FROM Extremity normal to inspection General Extremety ED: Negative for edema, pulses abnormal or tenderness General Extremity: Negative for edema or pulses abnormal Neuro oriented x3, CN's II-XII intact bilaterally and no sensory deficits noted Neuro Narrative: No dysmetria. No aphasia or dysarthria. With performing Priyank-Hallpike maneuver, upon initiating the maneuver to the right patient was lying down and with turning her head to that side she had immediate severe reproduction of symptoms that lasted for less than a minute. No reproduction of symptoms when she did the maneuver to the left which was essentially negative. Sensorium / Orientation: awake and alert Motor Exam: strength 5/5 throughout Psych mental status grossly normal Skin no rashes or lesions noted and no wounds MDM MDM MDM Narrative Medical decision making narrative: Reviewed EKG from PCP office prior to arrival: Sinus rhythm, multifocal PVCs, left axis, poor R wave progression on my interpretation. EKG here is same without the ectopy. There is motion artifact it is sinus rhythm at 54. Old EKG from 10/21/2024 shows similar left axis and poor R wave progression and otherwise unchanged morphology and intervals. I think this patient is experiencing vertigo rather than near syncope from a cardiac cause. I placed her on the monitor and performed an EKG, which shows the same morphology as her prior EKG and the same poor R-wave progression. She is not currently displaying the ectopy that was observed when she was an outpatient. Those EKGs were sent and reviewed. Her workup here is unremarkable, and her basic labs are normal. I do not believe she requires troponins, as she has no chest symptoms. I performed a head CT due to her headache, transient lateralizing neurologic symptoms, and vertigo, though the vertigo appears to be peripheral in etiology. I reviewed the head CT images and report, which are normal. She was given meclizine and is doing somewhat better. I was able to reproduce her symptoms with vestibular repositioning, suggesting a peripheral cause. At this point, she can follow up as an outpatient with her primary doctor regarding the PVCs, and she can follow up with otolaryngology if her vertigo persists longer than one week. She will be prescribed meclizine as needed. Her vital signs are all normal. I do not believe this is central or a TIA/stroke. She is comfortable with this plan. Lab Data Attestation: I reviewed the patient's lab results. Labs: Laboratory Results - last 24 hr 03/31/25 10:49 WBC 6.1 RBC 4.75 Hgb 15.9 H Hct 46.0 MCV 96.8 MCH 33.5 H MCHC 34.6 RDW Std Deviation 45.5 H RDW Coeff of Jeffry 12.7 Plt Count 325 MPV 8.9 Immature Gran % (Auto) 0.500 Neut % (Auto) 56.9 Lymph % (Auto) 32.4 Potter % (Auto) 5.4 Eos % (Auto) 4.1 Baso % (Auto) 0.7 Absolute Neuts (auto) 3.5 Absolute Lymphs (auto) 1.98 Nucleated RBC % 0 Sodium 138 Potassium 4.0 Chloride 104 Carbon Dioxide 24.4 Anion Gap 10 BUN 10 Creatinine 0.65 L Estim Creat Clear Calc 172.63 Est GFR (MDRD) Non-Af 118 BUN/Creatinine Ratio 16.0 Glucose 97 Calcium 8.9 Radiography Diagnostic Testing: Clinical Impression(s) from Imaging Studies Brain CT 03/31/25 10:27 IMPRESSION: NORMAL NONCONTRAST HEAD CT. Reading Location: [facility] Rhythm Strip Rhythm Strip: Sinus Rhythm Rate: 55 Ectopy: None EKG Initial EKG: Attestation: I personally reviewed and interpreted this EKG as follows: Interpretation: No Acute Injury Pattern, Sinus Arrythmia and LAFB Comments: poor R progression Prior EKG tracings: available for review Prior: Unchanged Discharge Plan Triage Chief Complaint: Dizziness ED Provider: Norm Dunaway Dx/Rx/DC Orders Clinical Impression: Peripheral positional vertigo of right ear, Acute nonintractable headache, Multifocal PVCs Instructions: PVCs, ED Vertigo, Unspecified Prescriptions: New meclizine 25 mg tablet 25 mg PO TID PRN (Reason: dizziness) Qty: 20 0RF No Action albuterol sulfate 90 mcg/actuation HFA aerosol inhaler 2 puff INHALATION Q4H Patient Comments: INHALE 2 PUFFS BY MOUTH EVERY 4 HOURS bupropion HCl 150 mg tablet extended release 24 hr 150 mg PO DAILY escitalopram oxalate 5 mg tablet 10 mg PO DAILY metoprolol tartrate 25 mg tablet 25 mg PO QHS Primary Care Provider: Rona Hyde Referrals: Nilo Alves MD [Med Staff - Courtesy Staff, Ear Nose Throat (ENT)] - 1 Week if not improving Referral Note: with regards to vertigo Rona Hyde MD [Primary Care Provider, Internal Medicine] - 1-2 Weeks Referral Note: for PVCs follow up Print Language: [place] Citizen Disposition Disposition: Home, Self Care
[2025-03-31 10:44] VITALS: BP 134/97; PULSE 58; RESP 18; O2SAT 92
[2025-03-31 10:57] LABS: Hematocrit 46.0 % (37-47); Hemoglobin 15.9 g/dL (12.0-15.0); Immature Granulocytes Count 0.030 X10^3/uL (0.0-0.0); Mean Corp Hgb Conc 34.6 g/dL (32-36); Mean Corpuscular Volume 96.8 fL (81-99); Mean Platelet Vol. 8.9 fl (6.2-12.0); NRBC Flagged by Analyzer 0 % (0-5); Platelet Count 325 K/mm3 (150-450); RBC Distribution Width CV 12.7 % (11.6-14.6); RBC Distribution Width SD 45.5 fl (35.1-43.9); Red Blood Count 4.75 M/mm3 (4.2-5.4); White Blood Count 6.1 K/mm3 (4.4-11.0)
[2025-03-31 11:24] LABS: Anion Gap 10 (5-15); BUN 10 mg/dL (4-19); BUN/Creat Ratio 16.0 RATIO (10-20); Calcium,Total 8.9 mg/dL (7.6-11.0); Carbon Dioxide 24.4 mmol/L (21.0-32.0); Chloride 104 mmol/L (98-108); Estimated Creatinine Clearance 172.63 ml/min (50-250); Glucose 97 mg/dL (70-99); Potassium 4.0 mmol/L (3.3-5.1)
[2025-03-31 12:00] VITALS: BP 120/77; PULSE 50; RESP 17; O2SAT 92
[2025-03-31 13:26] VITALS: BP 133/91; PULSE 74; RESP 19; TEMP 36.8; O2SAT 95
== END 2025-03-31 13:27 | disposition home or self-care (01) ==
PROVIDERS: Emergency Provider Emergency Medicine; PCP Internal Medicine; Visit Provider Emergency Medicine
DX: H81.391 Other peripheral vertigo, right ear (principal); I28.1 Aneurysm of pulmonary artery; F31.9 Bipolar disorder, unspecified; J84.9 Interstitial pulmonary disease, unspecified; R51.9 Headache, unspecified; I49.3 Ventricular premature depolarization; I10 Essential (primary) hypertension; F41.9 Anxiety disorder, unspecified; Z79.51 Long term (current) use of inhaled steroids; Z79.899 Other long term (current) drug therapy
CPT/HCPCS: 70450; 80048; 85025; 93005; 99284; A4216